=== PATIENT | female | born 1975 ===

== ENCOUNTER 2017-04-09 12:16 | Emergency (ER) | payer SELFPAY ==
[2017-04-09] MEDS ORDERED: Sodium Chloride 0.9% 1,000 ML IV ONE (13:30)
[2017-04-09] MEDS ORDERED: Sodium Chloride 0.9% 1,000 ML ONE (13:44)
[2017-04-09 14:20] LABS: RBC URINE 13 /hpf (0-3); URINE BACTERIA FEW (<OCC); URINE BILIRUBIN NEGATIVE (NEGATIVE); URINE BLOOD 2+ (NEGATIVE); URINE COLOR Yellow (YELLOW); URINE GLUCOSE (UA) NORMAL (Normal); URINE KETONE NEGATIVE (NEGATIVE); URINE LEUKOCYTE ESTERASE TRACE Leu/uL (Negative); URINE PROTEIN 2+ mg/dL (NEGATIVE); URINE UROBILINOGEN NORMAL mg/dL (0.2-1.0); WBC URINE 11 /hpf (0-5)
[2017-04-09 14:24] LABS: BASO # 0.1 K/uL (0.0-0.2); BASO % 0.4 % (0.0-2.0); HEMATOCRIT 35.9 % (34.0-47.0); LYMPH # 1.1 K/uL (1.0-4.3); MEAN CELL VOLUME 87.7 fL (81.0-99.0); MEAN CORPUSCULAR HGB CONC 34.3 g/dL (33.0-37.0); MEAN PLATELET VOLUME 8.2 fL (7.2-11.7); MONO # 1.2 K/uL (0.0-0.8); MONO % 7.6 % (0.0-10.0); PLATELET COUNT 204 K/uL (130-400); RED CELL DISTRIBUTION WIDTH 13.2 % (11.5-14.5); WHITE BLOOD COUNT 15.6 K/uL (4.8-10.8)
[2017-04-09 14:41] LABS: BASOPHIL 2 % (0-2); NEUTROPHIL 82 % (50-75); TOTAL CELLS COUNTED 100
[2017-04-09 14:42] LABS: CHLORIDE 93 mmol/L (98-107)
[2017-04-09 14:43] LABS: POTASSIUM 3.5 mmol/L (3.6-5.2); SODIUM 131 mmol/L (132-148)
[2017-04-09 14:45] LABS: AST/SGOT 21 U/L (14-36); CARBON DIOXIDE 27 mmol/L (22-30); GFR AFRICAN-AMERICAN > 60
[2017-04-09 14:46] LABS: ALB/GLOB RATIO 1.2 (1.0-2.1); ALKALINE PHOSPHATASE 64 U/L (38-126); ALT/SGPT 21 U/L (9-52); BLOOD UREA NITROGEN 13 mg/dL (7-17); CALCIUM 8.5 mg/dl (8.6-10.4); GLUCOSE,RANDOM 123 mg/dL (65-105); TOTAL PROTEIN 7.3 g/dL (6.3-8.3)
[2017-04-09 14:50] VITALS: RESP 18
[2017-04-09] MEDS ORDERED: cefTRIAXone IV 1 gm in Dextros 1 GM in Dextrose 5% In Water 50 ML IVPB STA (15:52)
--- NOTE | 2017-04-09 15:57 | C.PDOC ---
History Of Present Illness Pt reports two day of fever malase and back pain. Denies cough, sore throat, or dysuria however has had frequency and urgency. Hx of UTi few mths ago and multiple prior. Time Seen by Provider: 04/09/17 13:31 Chief Complaint (Nursing): Flu-like Symptoms History Per: Patient History/Exam Limitations: no limitations Onset/Duration Of Symptoms: Days Current Symptoms Are (Timing): Worse Associated Symptoms: Fever, Chills, Vomiting (this am). denies: Diarrhea Past Medical History Vital Signs: Last Vital Signs Temp 98.8 F 04/09/17 16:33 Pulse 78 04/09/17 16:33 Resp 18 04/09/17 16:33 BP 100/62 04/09/17 16:33 Pulse Ox 97 04/21/17 07:53 - Medical History PMH: No Chronic Diseases Surgical History: No Surg Hx Family History: States: Unknown Family Hx - Social History Hx Tobacco Use: No Hx Alcohol Use: No Hx Substance Use: No Review Of Systems Except As Marked, All Systems Reviewed And Found Negative. Physical Exam - Physical Exam Appears: Well, Non-toxic Skin: Normal Color, Warm Throat: Normal Chest: Symmetrical Cardiovascular: Rhythm Regular, No Murmur Respiratory: Normal Breath Sounds, No Rales, No Rhonchi Gastrointestinal/Abdominal: Soft, No Tenderness, No Guarding, No Rebound Back: CVA Tenderness (bilaterally) Extremity: Normal ROM, No Pedal Edema ED Course And Treatment - Laboratory Results Result Diagrams: 04/09/17 14:05 04/09/17 14:05 O2 Sat by Pulse Oximetry: 97 Progress Note: UA labs IV and meds ordered Medical Decision Making Medical Decision Making: Pt markedly improved in the ED abd continued non surgical Labs with elevated wbc's and (+) UA Treated with IV rocephin Pt fever down tolerating PO no further vomiting, OP tx indicated Plan home abx Disposition Counseled Patient/Family Regarding: Diagnosis, Need For Followup - Disposition Referrals: [facility] [Outside] Disposition: HOME/ ROUTINE Disposition Time: 15:53 Condition: GOOD Prescriptions: Ciprofloxacin [Cipro] 1 tab PO BID #14 tab Naproxen [Naprosyn] 1 tab PO BID PRN #25 tab PRN Reason: Pain Instructions: Acute Pyelonephritis (ED) Print Language: KOSOVAN - Clinical Impression Clinical Impression: Pyelonephritis, Fever
[2017-04-09] MEDS ORDERED: cefTRIAXone IV 1 gm in Dextros 50 ML IVPB ONE (16:02)
[2017-04-09 20:19] VITALS: BP 100/62; PULSE 78; TEMP 98.8
[2017-04-11 21:29] VITALS: O2SAT 97
== END 2017-04-09 16:36 | disposition home or self-care (01) ==
LOC: SUPCPDRO 12:16 → C.ER 12:16
DX: N12 Tubulo-interstitial nephritis, not specified as acute or chronic (principal); R50.9 Fever, unspecified
CPT/HCPCS: 80053; 81001; 85025; 87086; 96361; 96365; 96375; 99283; J0696; J1885; J2405; J7040

== ENCOUNTER 2019-04-09 08:39 | Outpatient (CLI) | payer OTHER | END 2019-04-09 08:40 | disposition home or self-care (01) | LOC: C.LAB 08:39 | DX: Z00.00 Encounter for general adult medical examination without abnormal findings (principal); Z11.3 Encounter for screening for infections with a predominantly sexual mode of transmission ==